=== PATIENT | female | born 1995 | race Caucasian/White ===

== ENCOUNTER 2024-02-10 01:50 | Emergency (ER) | payer SELFPAY ==
[~2024-02-10] VITALS: Ht 175.3 cm; Wt 59.1 kg
[2024-02-10] MEDS: ONDANSETRON 4MG 2ML VIAL IV ONE (02:31)
[2024-02-10] MEDS: NS 1,000 ML IV ONE (02:32)
[2024-02-10] MEDS: MORPHINE 4 MG/ML 1ML VIAL IV PRN (02:32)
[2024-02-10 02:37] LABS: BASO % 0.5 % (0.0-1.0); EOS # 0.2 10^3/uL (0.0-0.5); EOS % 2.8 % (0.0-3.0); HEMATOCRIT 39.1 % (36.0-47.0); HEMOGLOBIN 12.9 g/dl (12.0-15.5); LYMPH # 1.9 10^3/uL (1.5-5.0); LYMPH % 29.8 % (24.0-44.0); MONO # 0.5 10^3/uL (0.0-0.8); MONO % 7.2 % (2.0-8.0); NEUTROPHILS # 3.9 10^3/uL (1.5-8.5); NEUTROPHILS % 59.4 % (36.0-66.0); PLATELET COUNT, AUTOMATED 277 10^3/uL (150-450); RED BLOOD COUNT 4.77 10^6/uL (4.00-5.40); WHITE BLOOD COUNT 6.5 10^3/uL (4.0-10.0)
[2024-02-10] MEDS ORDERED: ISOVUE-370 76% 100ML VIAL As Ordered ONE (02:38)
[2024-02-10 02:39] LABS: VENOUS BASE EXCESS 0.7 (-2.0-2.0); VENOUS HCO3 26.1 MMOL/L (23.0-27.0); VENOUS O2 SATURATION 96.5 % (60.0-80.0); VENOUS PARTIAL PRESSURE CO2 44.8 mmHg (38.0-50.0); VENOUS PARTIAL PRESSURE O2 89.2 mmHg (30.0-50.0); VENOUS PH 7.383 UNITS (7.330-7.430); VENOUS TOTAL CO2 27.5 MMOL/L (24.0-28.0)
[2024-02-10 02:58] LABS: ETHYL ALCOHOL (ETHANOL) 0.003 % (0.000-0.010); LIPASE 52 U/L (12-53)
[2024-02-10 02:59] LABS: AMYLASE 47 U/L (30-118)
[2024-02-10 03:00] LABS: ALBUMIN 3.1 G/DL (3.2-5.2); ALKALINE PHOSPHATASE 68 U/L (46-116); ALT/SGPT 19 U/L (7.0-40); AST/SGOT 11 U/L (<34); BILIRUBIN,DIRECT 0.3 MG/DL (<0.4); BILIRUBIN,TOTAL 0.8 MG/DL (0.3-1.2); CK-MB VALUE MASS < 1.0 NG/ML (<3.6); CPK CREATINE PHOSPHOKINASE 39 U/L (34-145); MB/CK RELATIVE INDEX 2.56 (< OR =4); TOTAL PROTEIN 6.2 G/DL (5.7-8.2)
[2024-02-10 03:17] LABS: INR 0.98; PARTIAL THROMBOPLASTIN TIME 27.3 SECONDS (24.8-34.2); PROTHROMBIN TIME 12.7 SECONDS (12.5-14.5)
[2024-02-10 07:09] LABS: APPEARANCE, URINE CLEAR (CLEAR); BACTERIA, URINE AUTO NEGATIVE (NEGATIVE); BILIRUBIN, URINE AUTO NEGATIVE (NEGATIVE); BLOOD, URINE BLOOD 3+ (NEGATIVE); COLOR, URINE YELLOW (YELLOW); GLUCOSE, URINE (UA) AUTO NEGATIVE (NEGATIVE); KETONE, URINE AUTO NEGATIVE (NEGATIVE); LEUKOCYTE ESTERASE, URINE AUTO NEGATIVE (NEGATIVE); MUCUS, URINE SMALL (NEGATIVE); NITRITE, URINE AUTO NEGATIVE (NEGATIVE); PROTEIN, URINE AUTO NEGATIVE (NEGATIVE); RBC, URINE AUTO 11 /HPF (0-3); SQUAMOUS EPITHELIAL CELL UR AU 5 /HPF (0-6); UROBILINOGEN, URINE AUTO 0.2 mg/dL (0.0-2.0); WBC, URINE AUTO 1 /HPF (0-3)
[2024-02-10 07:43] LABS: SPECIFIC GRAVITY URINE AUTO >1.060 (1.002-1.035)
[2024-02-10] MEDS: KETOROLAC 30 MG/ML 1ML VIAL IV ONE (08:34)
[2024-02-10 08:37] VITALS: BP 117/71; TEMP 97.8; O2SAT 99
[2024-02-10 08:57] LABS: BARBITURATES URINE NEGATIVE (NEGATIVE); BENZODIAZEPINES URINE NEGATIVE (NEGATIVE); CANNABINOIDS URINE NEGATIVE (NEGATIVE); COCAINE METABOLITE URINE NEGATIVE (NEGATIVE); METHADONE URINE NEGATIVE (NEGATIVE); PHENCYCLIDINE URINE NEGATIVE (NEGATIVE)
[2024-02-10 08:58] LABS: AMPHETAMINES LEVEL URINE POSITIVE (NEGATIVE); OPIATES URINE POSITIVE (NEGATIVE)
== END 2024-02-10 08:40 | disposition home or self-care (01) ==
LOC: M ED 01:50
DX: T07.XXXA Unspecified multiple injuries, initial encounter (principal); V86.55XA Driver of 3- or 4- wheeled all-terrain vehicle (ATV) injured in nontraffic accident, initial encounter; Y92.89 Other specified places as the place of occurrence of the external cause; Y93.89 Activity, other specified; Y99.8 Other external cause status; F17.200 Nicotine dependence, unspecified, uncomplicated
CPT/HCPCS: 70450; 71045; 71260; 72125; 73030; 74177; 80047; 80076; 80307; 81001; 82077; 82150; 82550; 82553; 82803; 83605; 83690; 84484; 85025; 85610; 85730; 86850; 86900; 86901; 93005; 93041; 94760; 96365; 96366; 96375; 99285; J1885; J2405; Q9967

== ENCOUNTER 2024-08-24 16:58 | Inpatient (IN) | payer OTHER, SELFPAY ==
[~2024-08-24] VITALS: Ht 177.8 cm; Wt 69.5 kg
[2024-08-24] MEDS ORDERED: ACET-683 PO (17:08)
[2024-08-24] MEDS ORDERED: SUBO12MI SL (17:08)
[2024-08-24 18:03] LABS: BASO % 0.3 % (0.0-1.0); HEMATOCRIT 42.7 % (36.0-47.0); HEMOGLOBIN 14.1 g/dl (12.0-15.5); KETONE, URINE AUTO RFX 2+ mg/dL (NEGATIVE); LYMPH # 0.7 10^3/uL (1.5-5.0); LYMPH % 6.4 % (24.0-44.0); MEAN CORPUSCULAR HEMOGLOBIN 29.4 pg (27.0-33.0); MONO # 0.7 10^3/uL (0.0-0.8); MONO % 6.1 % (2.0-8.0); MUCUS, URINE RFX SMALL (NEGATIVE); NEUTROPHILS # 9.7 10^3/uL (1.5-8.5); NEUTROPHILS % 86.6 % (36.0-66.0); NITRITE, URINE AUTO RFX NEGATIVE (NEGATIVE); PLATELET COUNT, AUTOMATED 169 10^3/uL (150-450); RBC, URINE AUTO RFX 2 /HPF (0-3); SQUAM EPITHELIAL CELL UR AURFX 3 /HPF (0-6); WHITE BLOOD COUNT 11.2 10^3/uL (4.0-10.0)
[2024-08-24 18:04] LABS: LEUKOCYTE ESTERASE UR AUTO RFX 1+ (NEGATIVE); WBC, URINE AUTO RFX 23 /HPF (0-3)
[2024-08-24 18:22] LABS: LIPASE 31 U/L (12-53)
[2024-08-24 18:24] LABS: ALBUMIN 3.6 G/DL (3.2-5.2); ALKALINE PHOSPHATASE 72 U/L (35-104); ALT/SGPT 25 U/L (7.0-40); AST/SGOT 21 U/L (<34); BILIRUBIN,DIRECT 0.6 MG/DL (<0.4); BILIRUBIN,TOTAL 3.4 MG/DL (0.3-1.2); BLOOD UREA NITROGEN 20 MG/DL (9-23); CARBON DIOXIDE LEVEL 28 MMOL/L (20-31); CHLORIDE LEVEL 101 MMOL/L (98-107); CREATININE FOR GFR 0.68 MG/DL (0.55-1.30); GLOMERULAR FILTRATION RATE > 60.0 (>60); GLUCOSE, FASTING 92 MG/DL (60-100); POTASSIUM SERUM 4.8 MMOL/L (3.5-5.1); SODIUM LEVEL 138 MMOL/L (136-145); TOTAL PROTEIN 7.2 G/DL (5.7-8.2)
[2024-08-24 18:36] LABS: RSV AMPLIFICATION NEGATIVE (NEGATIVE)
[2024-08-24 18:37] LABS: HCG, SERUM QUALITATIVE NEGATIVE (NEGATIVE)
[2024-08-24] MEDS ORDERED: ISOVUE-370 76% 100ML VIAL As Ordered ONE (18:49)
[2024-08-24] MEDS: KETOROLAC 30 MG/ML 1ML VIAL IV ONE (20:13)
[2024-08-24] MEDS: ONDANSETRON 4MG 2ML VIAL IV ONE (20:13)
[2024-08-24] MEDS: NS (Normal Saline) 0.9% 1,000 ML IV ONE ×2 (21:30→22:25)
[2024-08-24] MEDS: ACETAMINOPHEN *IV* 1,000 MG in IV 1 EA IV ONE (21:30)
[2024-08-24] MEDS: cefTRIAXone SOD 1 GM in DEXTROSE 5% (D5W) ADV/MINI-BAG 50 ML IV ONE ×2 (22:43→23:37)
[2024-08-24] MEDS: NS (Normal Saline) 0.9% 1,990 ML in IV 1 EA IV ONE (23:37)
[2024-08-25] MEDS ORDERED: PERI0.126 PO (01:01)
[2024-08-25] MEDS ORDERED: HOME MED LIST COMPLETE! XX SCH (01:05)
[2024-08-25] MEDS: PIPERACILLIN/TAZOBACTAM SOD 4.5 GM in DEXTROSE 5% (D5W) ADV/MINI-BAG 50 ML IV ONE (01:50)
[2024-08-25] MEDS: MORPHINE 4 MG/ML 1ML VIAL IV PRN ×2 (02:30→12:34)
[2024-08-25] MEDS: HEPARIN SOD (PORCINE) 5000UNITS/ML 1ML VIAL/SYRINGE SC SCH (05:53)
[2024-08-25] MEDS: NS (Normal Saline) 0.9% 1,000 ML IV SCH (06:09)
[2024-08-25 07:57] LABS: HEMATOCRIT 41.8 % (36.0-47.0); HEMOGLOBIN 13.7 g/dl (12.0-15.5); MEAN CORPUSCULAR HGB CONC 32.8 g/dl (32.0-36.5); MEAN CORPUSCULAR VOLUME 91.5 fl (80.0-96.0); PLATELET COUNT, AUTOMATED 147 10^3/uL (150-450); RED BLOOD COUNT 4.57 10^6/uL (4.00-5.40); WHITE BLOOD COUNT 11.2 10^3/uL (4.0-10.0)
[2024-08-25] MEDS: ONDANSETRON 4MG 2ML VIAL IV PRN (08:00)
[2024-08-25 08:13] LABS: AMPHETAMINES LEVEL URINE NEGATIVE (NEGATIVE); BARBITURATES URINE NEGATIVE (NEGATIVE); CANNABINOIDS URINE NEGATIVE (NEGATIVE); COCAINE METABOLITE URINE NEGATIVE (NEGATIVE); METHADONE URINE NEGATIVE (NEGATIVE); OPIATES URINE NEGATIVE (NEGATIVE); PHENCYCLIDINE URINE NEGATIVE (NEGATIVE)
[2024-08-25 08:14] LABS: BENZODIAZEPINES URINE NEGATIVE (NEGATIVE)
[2024-08-25] MEDS: PIPERACILLIN/TAZOBACTAM SOD 4.5 GM in DEXTROSE 5% (D5W) ADV/MINI-BAG 50 ML IV SCH (08:17)
[2024-08-25 08:21] LABS: ALBUMIN 2.8 G/DL (3.2-5.2); ALKALINE PHOSPHATASE 67 U/L (35-104); ALT/SGPT 20 U/L (7.0-40); AST/SGOT 20 U/L (<34); BILIRUBIN,TOTAL 1.6 MG/DL (0.3-1.2); BLOOD UREA NITROGEN 21 MG/DL (9-23); CARBON DIOXIDE LEVEL 18 MMOL/L (20-31); CHLORIDE LEVEL 111 MMOL/L (98-107); CREATININE FOR GFR 0.67 MG/DL (0.55-1.30); GLOMERULAR FILTRATION RATE > 60.0 (>60); GLUCOSE, FASTING 83 MG/DL (60-100); POTASSIUM SERUM 4.7 MMOL/L (3.5-5.1); SODIUM LEVEL 141 MMOL/L (136-145)
[2024-08-25 09:14] LABS: LYMPHOCYTES 4 % (16-44); MONOCYTES 10 % (0-5); NEUTROPHILS 64 % (28-66); PLATELET ESTIMATE NORMAL (NORMAL); POIKILOCYTOSIS 1+; POLYCHROMASIA 1+
[2024-08-25 11:00] VITALS: BP 112/73; TEMP 99.3; O2SAT 93
[2024-08-25] MEDS: LR 1,000 ML IV SCH (11:00)
[2024-08-25 11:24] LABS: C REACTIVE PROTEIN QUANTITATIV 21.78 MG/DL (<1.0)
[2024-08-25 11:31] LABS: PROCALCITONIN 7.35 ng/ml
[2024-08-25 20:05] VITALS: BP 116/62; TEMP 100.6; O2SAT 93
[2024-08-25 22:00] VITALS: TEMP 98.9
[2024-08-25] MEDS: ACETAMINOPHEN *IV* 1,000 MG in IV 1 EA IV ONE (22:45)
[2024-08-26] MEDS: FIDAXOMICIN 200 MG TAB (DIFICID) PO SCH (02:13)
[2024-08-26 04:12] VITALS: BP 104/61; TEMP 98.1; O2SAT 94
[2024-08-26 08:28] LABS: BASO # 0.1 10^3/uL (0.0-0.2); BASO % 0.6 % (0.0-1.0); EOS # 0.1 10^3/uL (0.0-0.5); EOS % 1.4 % (0.0-3.0); HEMATOCRIT 38.8 % (36.0-47.0); HEMOGLOBIN 12.9 g/dl (12.0-15.5); LYMPH # 1.5 10^3/uL (1.5-5.0); LYMPH % 14.4 % (24.0-44.0); MEAN CORPUSCULAR HEMOGLOBIN 29.5 pg (27.0-33.0); MEAN CORPUSCULAR HGB CONC 33.2 g/dl (32.0-36.5); MEAN CORPUSCULAR VOLUME 88.6 fl (80.0-96.0); MONO # 1.7 10^3/uL (0.0-0.8); MONO % 16.5 % (2.0-8.0); NEUTROPHILS # 6.7 10^3/uL (1.5-8.5); NEUTROPHILS % 66.2 % (36.0-66.0); PLATELET COUNT, AUTOMATED 179 10^3/uL (150-450); RED BLOOD COUNT 4.38 10^6/uL (4.00-5.40); WHITE BLOOD COUNT 10.1 10^3/uL (4.0-10.0)
[2024-08-26 08:56] LABS: PROCALCITONIN 7.59 ng/ml
[2024-08-26 09:08] LABS: ALBUMIN 2.4 G/DL (3.2-5.2); ALKALINE PHOSPHATASE 56 U/L (35-104); ALT/SGPT 12 U/L (7.0-40); AST/SGOT 11 U/L (<34); BILIRUBIN,TOTAL 1.3 MG/DL (0.3-1.2); BLOOD UREA NITROGEN 13 MG/DL (9-23); C REACTIVE PROTEIN QUANTITATIV 22.67 MG/DL (<1.0); CALCIUM LEVEL 8.4 MG/DL (8.5-10.1); CARBON DIOXIDE LEVEL 25 MMOL/L (20-31); CHLORIDE LEVEL 105 MMOL/L (98-107); CREATININE FOR GFR 0.54 MG/DL (0.55-1.30); GLOMERULAR FILTRATION RATE > 60.0 (>60); GLUCOSE, FASTING 86 MG/DL (60-100); POTASSIUM SERUM 3.8 MMOL/L (3.5-5.1); SODIUM LEVEL 139 MMOL/L (136-145); TOTAL PROTEIN 5.5 G/DL (5.7-8.2)
[2024-08-26 13:26] VITALS: BP 107/69; TEMP 98.7; O2SAT 95
[2024-08-26 20:28] LABS: HIV 1&2 SCREEN NEGATIVE (NEGATIVE)
[2024-08-26 20:30] LABS: HEPATITIS B SURFACE ANTIGEN NEGATIVE (NEGATIVE)
[2024-08-26 20:33] VITALS: BP 94/56; TEMP 99.8; O2SAT 94
[2024-08-26 20:51] LABS: HEPATITIS C VIRUS ABY INDEX 0.15 INDEX (<0.8)
[2024-08-26] MEDS: ACETAMINOPHEN 325 MG TAB PO ONE (22:01)
[2024-08-27 04:00] VITALS: BP 110/68; TEMP 96.7; O2SAT 98
[2024-08-27 06:05] LABS: HEMATOCRIT 39.7 % (36.0-47.0); HEMOGLOBIN 13.2 g/dl (12.0-15.5); MEAN CORPUSCULAR HEMOGLOBIN 29.1 pg (27.0-33.0); MEAN CORPUSCULAR HGB CONC 33.2 g/dl (32.0-36.5); MEAN CORPUSCULAR VOLUME 87.4 fl (80.0-96.0); PLATELET COUNT, AUTOMATED 201 10^3/uL (150-450); RED BLOOD COUNT 4.54 10^6/uL (4.00-5.40); WHITE BLOOD COUNT 6.9 10^3/uL (4.0-10.0)
[2024-08-27 06:26] LABS: ALBUMIN 2.2 G/DL (3.2-5.2); ALKALINE PHOSPHATASE 50 U/L (35-104); ALT/SGPT 11 U/L (7.0-40); AST/SGOT 13 U/L (<34); BILIRUBIN,TOTAL 0.6 MG/DL (0.3-1.2); BLOOD UREA NITROGEN 11 MG/DL (9-23); CARBON DIOXIDE LEVEL 30 MMOL/L (20-31); CHLORIDE LEVEL 102 MMOL/L (98-107); CREATININE FOR GFR 0.44 MG/DL (0.55-1.30); GLOMERULAR FILTRATION RATE > 60.0 (>60); GLUCOSE, FASTING 99 MG/DL (60-100); POTASSIUM SERUM 3.2 MMOL/L (3.5-5.1); SODIUM LEVEL 141 MMOL/L (136-145); TOTAL PROTEIN 5.2 G/DL (5.7-8.2)
[2024-08-27 06:50] LABS: ATYPICAL LYMPH 1 % (0-5); EOSINOPHILS 2 % (0-3); LYMPHOCYTES 27 % (16-44); MONOCYTES 16 % (0-5); NEUTROPHILS 47 % (28-66)
[2024-08-27 06:51] LABS: PLATELET ESTIMATE NORMAL (NORMAL)
[2024-08-27] MEDS: POTASSIUM CHLORIDE 10MEQ SR TABLET PO ONE ×2 (08:04→10:20)
[2024-08-27] MEDS ORDERED: DIFI200T PO (10:32)
[2024-08-28 14:16] LABS: HEPATITIS B SURF AB QUANT < 5 mIU/mL (> OR = 10)
[2024-08-28 14:36] LABS: HEPATITIS B CORE ANTIBODY IGG NON-REACTIVE (NON-REACTIVE)
== END 2024-08-27 11:00 | DRG 720 ==
LOC: M ED 16:58 → M ED INP 16:59 → M MS5PR 08-25 10:45 → OBSVTOIN 08-26 10:13
PROVIDERS: ADMIT Family Medicine; ATTEND Internal Medicine
DX: A41.9 Sepsis, unspecified organism (principal); A04.72 Enterocolitis due to Clostridium difficile, not specified as recurrent; E87.20 Acidosis, unspecified; E87.6 Hypokalemia; Z79.899 Other long term (current) drug therapy

== ENCOUNTER → 2024-11-18 | Outpatient (CLI) | payer OTHER ==
[~2024-11-18] MED LIST: ACET-683 PO; DIFI200T PO; PERI0.126 PO; SUBO12MI SL
== END ==
LOC: M RAD 08:02
PROVIDERS: ATTEND Nurse Practitioner Family
DX: R10.11 Right upper quadrant pain (principal)